=== PATIENT | female | born 1955 | race African-American/Black ===

== ENCOUNTER 2018-04-08 09:18 | Emergency (ER) | payer MEDICARE, MEDICAID ==
[~2018-04-08] VITALS: Ht 165.1 cm; Wt 80.0 kg
[2018-04-08 09:20] VITALS: BP 152/83
[2018-04-08] MEDS ORDERED: ACETAMINOPHEN 325MG TABLET PO ONE (10:30)
== END 2018-04-08 11:42 | disposition home or self-care (01) ==
LOC: ER 09:18
DX: S01.01XA Laceration without foreign body of scalp, initial encounter (principal); E78.00 Pure hypercholesterolemia, unspecified; I10 Essential (primary) hypertension; W22.8XXA Striking against or struck by other objects, initial encounter; Y93.89 Activity, other specified; Y92.89 Other specified places as the place of occurrence of the external cause; Y99.8 Other external cause status; Z98.51 Tubal ligation status
CPT/HCPCS: 12013; 70450; 99284